=== PATIENT | female | born 1980 | race Caucasian/White ===

== ENCOUNTER 2022-04-08 07:20 | Emergency (ER) | payer OTHER ==
[~2022-04-08] VITALS: Ht 162.6 cm; Wt 70.0 kg
[2022-04-08 07:26] VITALS: BP 135/61
[2022-04-08] MEDS: SODIUM CHLORIDE 0.9% 1,000 ML IV ONE ×2 (09:01→12:02)
[2022-04-08] MEDS: FAMOTIDINE 20MG/2ML VIAL IV ONE (09:01)
[2022-04-08] MEDS: ONDANSETRON HCL 4MG/2ML INJ IV ONE (09:01)
[2022-04-08 09:24] LABS: BASOPHILS % 0.6 % (0.0-2.0); EOSINOPHILS % 1.7 % (0.0-5.0); HEMATOCRIT. 38.5 % (36.0-48.0); HEMOGLOBIN. 12.7 g/dL (12.0-16.0); LYMPHOCYTES % 18.8 % (20.0-50.0); MEAN CORPUSCULAR HEMOGLOBIN 30.1 pg (28.0-32.0); MEAN CORPUSCULAR VOLUME 91.1 fL (81.0-99.0); MEAN PLATELET VOLUME 8.5 fl (7.4-10.4); MONOCYTES % 3.1 % (2.0-8.0); NEUTROPHILS % 75.8 % (40.0-76.0); PLATELET 336 x1000/uL (130-400); RED BLOOD CELL COUNT 4.22 mill/uL (4.2-5.4); RED CELL DISTRIBUTION WIDTH 13.2 % (11.6-14.6)
[2022-04-08 09:57] LABS: CHLORIDE 109 mEq/L (98-107)
[2022-04-08 10:36] LABS: HCG SCREEN NEGATIVE
[2022-04-08] MEDS: MECLIZINE 25MG TABLET PO ONE (11:13)
[2022-04-08] MEDS ORDERED: IOHEXOL-300 100 ML BOTTLE ONE (15:11)
== END 2022-04-08 18:23 | disposition left against medical advice (07) ==
LOC: ER 07:20 → CANBEDREQ 21:26
DX: R42 Dizziness and giddiness (principal); R11.2 Nausea with vomiting, unspecified; Z53.21 Procedure and treatment not carried out due to patient leaving prior to being seen by health care provider
CPT/HCPCS: 36415; 74177; 80053; 81025; 83690; 84484; 84703; 85025; 93005; 96374; 96375; 99285; J2405; J3490; J7030; J8597; Q9967